=== PATIENT | female | born 1970 | race Caucasian/White ===

== ENCOUNTER 2022-07-22 06:45 | Day surgery (SDC) | payer OTHER ==
[~2022-07-22] VITALS: Ht 170.2 cm; Wt 97.7 kg
[~2022-07-22 06:45] MED LIST: EFFEXOR XR75 MG PO; HYDROCHLOROTH12.5 MG PO; OMEPRAZOLE20 MG PO; TOPROL XL25 MG PO; ZESTRIL20 MG PO
--- NOTE | 2022-07-22 07:54 | NUR ---
VISITED WITH PT PRIOR TO PROCEDURE. PT SHARED HOW CHALLENGING THE PREP WAS THE DAY BEFORE AND A LITTLE NERVOUSNESS THAT BECAUSE OF CHALLENGES WASN'T ABLE TO START PREP ON TIME. PT SHARED THAT THEIR PARTNER WAS WAITING IN THE CAR BECAUSE OF ANXIETY OF BEING IN THE HOSPITAL. PRAYED WITH PT.
--- NOTE | 2022-07-22 09:14 | NUR ---
07/22/22 0914 Vandana Henry 0900-PATIENT ARRIVED TO PACU ON 2L NC RR EVEN. PATIENT AWAKE LAYING LEFT LATERAL ABDOMEN SOFT. IVF FINISHED INFUSING. PER SUPERVISOR TYPE BAR AND SEGMENT DO NOT NEED TO HANG. ENCOURAGED TO PASS GAS. PATIENT REPOSITIONED SELF TO BACK. 904-BP REMAINS HIGH NEW ORDER RECEIVED FOR LABETOLOL IVP. PATIENT DRINKS ALCOHOL AT HOME. PATIENT EDUCATED ABOUT DRINKING A LITTLE BIT TODAY TO DECREASE CHANCE OF WITHDRAWLS. PATIENT HAD NAUSEA YESTERDAY. PATIENT TEARFUL. 912-PATIENT AWAKE PLACED ON RA RR EVEN 100% DENIES PAIN OR NAUSEA. ENCOURAGED TO PASS GAS.
--- NOTE | 2022-07-23 06:49 | OR ---
[facility] [address], [place] [address] Signed DATE OF OPERATION: 07/22/2022 SURGEON: Herb Pabon MD PREOPERATIVE DIAGNOSES: 1. Screening. 2. Intermittent rectal bleeding. POSTOPERATIVE DIAGNOSES: 1. Small internal and external hemorrhoids. 2. Small anal skin tags x2. PROCEDURE: Colonoscopy without biopsy. ESTIMATED BLOOD LOSS: None. INDICATIONS: Jyotsna is a 51-year-old female asked to see me for her initial colonoscopy. She can feel a skin tag when she is going to the bathroom and in the shower. She says if she drinks too much whiskey, she will have diarrhea. Sometimes she sees blood particularly after she drinks whiskey. She tends to drink a little whiskey each day. She also has COPD. She has a very full round face, heavy chest and abdomen as well. Consequently we did ask for monitored anesthesia care. She told me both her daughters are registered nurses. She has talked to them extensively about colonoscopies. She gives no family history of colon cancer or polyps. In the office, I gave her a pamphlet on colonoscopy and we did review that together. She understands there is risk including, but not limited to gas bloating, crampy abdominal pain, bleeding, perforation requiring surgery, and missed diagnosis. We also discussed the need for the monitored anesthesia care. She had expressed understanding and wished to proceed. PROCEDURE NOTE: Jyotsna was taken into our endoscopy suite and placed in the left lateral decubitus position. She was given monitored anesthesia care with propofol per our nurse wellness specialist. She needed several doses and we had to add some ketamine. On digital rectal exam, she does have two small anal skin tags. One is about a cm or so long and I think that is the one that bothers her. She does have small external hemorrhoids. We can see they are a little beefy and I am sure they bleed from time to time. She had Electronically Signed By: HERB PABON MD 07/23/22 0649 PATIENT NAME: JYOTSNA PACHECO OPERATIVE REPORT DATE OF : 72 REPORT #: [id number] PHYSICIAN: HERB PABON MD PCP: PETER HATHAWAY PA-C REPORT IS CONFIDENTIAL AND NOT TO BE RELEASED WITHOUT AUTHORIZATION [facility] [address], [place] [address] Signed good sphincter tone. There were no masses. The adult colonoscope had been introduced, advanced all around into the cecum under direct visualization of the camera without difficulty. Her prep was quite excellent. We could easily see the appendiceal orifice and ileocecal valve. We slowly withdrew the scope. We took pictures throughout for photodocumentation. We saw no pathology throughout the entire colon or rectum. Once in the rectum, the scope had been retroflexed. We can see the two small internal anal skin tags. One is just long enough that comes in and out. She has very small internal hemorrhoid columns that are also just a little bit beefy. Again, I am sure she sees some blood from time to time. After this, the gas was suctioned out and the colonoscope removed. Jyotsna tolerated the procedure quite well. RECOMMENDATIONS: I will see Jyotsna back in my office in 10 years for repeat colonoscopy. If she would like to have the two tiny internal anal skin tags removed that certainly is possible. We would be happy to see her in the office in that regard. Herb Pabon MD ALB/MODL /[id number] cc: MD Peter Carlson PA Copies: HERB PABON MD ~ Electronically Signed By: HERB PABON MD 07/23/22 0649 PATIENT NAME: JYOTSNA PACHECO OPERATIVE REPORT DATE OF : 72 REPORT #: [id number] PHYSICIAN: HERB PABON MD PCP: PETER HATHAWAY PA-C REPORT IS CONFIDENTIAL AND NOT TO BE RELEASED WITHOUT AUTHORIZATION
== END 2022-07-22 09:56 | disposition home or self-care (01) ==
LOC: OPS 06:45 → DS 06:45 → OPS 08:10 → DS 09:45 → OPS 09:56
PROVIDERS: ATTEND Colon & Rectal Surgery
PROC: 0DJD8ZZ Inspection of Lower Intestinal Tract, Via Natural or Artificial Opening Endoscopic (ICD-10-PCS; principal; 2022-07-22 08:10)
DX: Z12.11 Encounter for screening for malignant neoplasm of colon (principal); K64.8 Other hemorrhoids; K64.4 Residual hemorrhoidal skin tags; I10 Essential (primary) hypertension; F43.12 Post-traumatic stress disorder, chronic; K21.9 Gastro-esophageal reflux disease without esophagitis; J44.9 Chronic obstructive pulmonary disease, unspecified; F32.A Depression, unspecified; E78.2 Mixed hyperlipidemia
CPT/HCPCS: J0690; J2250; J2704; J3010; J7121